=== PATIENT | male | born 1995 | race Native Hawaiian/Other Pacific Islander ===

== ENCOUNTER 2016-12-05 12:38 | Emergency (ER) | payer MEDICAID ==
[2016-12-05 13:38] LABS: Basophils % (Auto) 0.5 % (0.0-1.8); Eosinophils % (Auto) 0.3 % (0.0-4.3); Hematocrit 46.8 % (35.5-45.6); Mean Corpuscular HGB Conc 34 % (32-34); Mean Corpuscular Hemoglobin 32 pg (28-32); Mean Corpuscular Volume 93 fl (84-94); Platelet Count 196 K/mm3 (140-440); Red Blood Count 5.05 M/mm3 (3.65-5.03); Red Cell Distribution Width 12.6 % (13.2-15.2); White Blood Count 6.7 K/mm3 (4.5-11.0)
[2016-12-05 13:52] LABS: Anion Gap 19 mmol/L; BUN/Creatinine Ratio 13.33; Blood Urea Nitrogen 12 mg/dL (9-20); Calcium 9.9 mg/dL (8.4-10.2); Carbon Dioxide 25 mmol/L (22-30); Chloride 97.9 mmol/L (98-107); Glucose 79 mg/dL (75-100); Potassium 4.3 mmol/L (3.6-5.0); Sodium 138 mmol/L (137-145)
[2016-12-05 14:29] LABS: Urine Drugs of Abuse Note Disclamer
[2016-12-05 14:42] LABS: Bilirubin,Urine NEG (Negative); Blood,Urine NEG (Negative); Ketones,Urine NEG (Negative); Leukocyte Esterase,Urine NEG (Negative); Mucus,Urine 1+ /HPF; Nitrite,Urine NEG (Negative); Protein,Urine <15 mg/dL mg/dL (Negative); Urobilinogen,Urine < 2.0 mg/dL (<2.0)
--- NOTE | 2016-12-05 18:23 | Emergency Department Report ---
ED Psych HPI - General Chief Complaint: Psych Stated Complaint: [facility] Time Seen by Provider: 12/05/16 18:04 Source: patient Mode of arrival: Ambulatory Limitations: No Limitations - History of Present Illness -: Gradual Associated Psychiatric Symptoms: homicidal ideation, auditory hallucinations Quality: constant Improves With: none Worsens With: none Context: other (hx schizo) Associated Symptoms: denies: confusion, headache, shortness of breath, nausea, vomiting, syncope, insomnia Treatments Prior to Arrival: other (called crisis line and they sent pt here) - Related Data Allergies Allergy/AdvReac Type Severity Reaction Status Date / Time Penicillins Allergy Unknown Verified 12/05/16 12:53 ED Review of Systems ROS: Stated complaint: [facility] Other details as noted in HPI Comment: All other systems reviewed and negative Constitutional: no symptoms reported Eyes: as per HPI ENT: as per HPI Respiratory: no symptoms reported Cardiovascular: as per HPI Endocrine: no symptoms reported Gastrointestinal: as per HPI Genitourinary: as per HPI Musculoskeletal: as per HPI Skin: as per HPI Neurological: as per HPI Psychiatric: as per HPI, auditory hallucinations, homicidal thoughts Hematological/Lymphatic: as per HPI ED Past Medical Hx - Past Medical History Previous Medical History?: Yes Hx Psychiatric Treatment: Yes (schizophrenia) - Surgical History Past Surgical History?: Yes Additional Surgical History: eye surgery - Family History Family history: no significant - Social History Smoking Status: Never Smoker Substance Use Type: Non Opiate Pain ED Physical Exam - General Limitations: No Limitations General appearance: alert, anxious, other (constricted) - Head Head exam: Present: atraumatic - Eye Eye exam: Present: normal appearance, PERRL - ENT ENT exam: Present: normal exam, mucous membranes moist - Neck Neck exam: Present: normal inspection. Absent: tenderness, meningismus - Respiratory Respiratory exam: Present: normal lung sounds bilaterally - Cardiovascular Cardiovascular Exam: Present: regular rate, bradycardia - GI/Abdominal GI/Abdominal exam: Present: soft - Rectal Rectal exam: Present: deferred - Neurological Exam Neurological exam: Present: alert, altered, oriented X3, CN II-XII intact, normal gait, reflexes normal. Absent: abnormal gait, motor sensory deficit - Psychiatric Psychiatric exam: Present: anxious, flat affect, homicidal ideation, other ( constricted. responding to internal commands) - Skin Skin exam: Present: warm, dry, normal color ED Course Vital Signs 12/05/16 12/05/16 12/05/16 12:53 16:53 18:03 Temperature 98 F 97.8 F Pulse Rate 50 L 54 L Respiratory 16 20 18 Rate Blood Pressure 118/74 117/80 Blood Pressure [Left] O2 Sat by Pulse 99 10 L 100 Oximetry 12/05/16 18:09 Temperature 59 F L Pulse Rate 59 L Respiratory 18 Rate Blood Pressure Blood Pressure 119/78 [Left] O2 Sat by Pulse 100 Oximetry - Reevaluation(s) Reevaluation #1: 12/05/16 18:32 here w mom and bro for psych eval schizo invega im trazadone and ambien taking meds per mom denies drugs denies si pt constricted av to hurt mom or bro. sponge melissa is telling him to do so pt cooperative. labs noted [facility] [id number] Reevaluation #2: 12/05/16 20:20 vss nad awaiting [facility] ED Medical Decision Making - Lab Data Result diagrams: 12/05/16 13:09 12/05/16 13:09 - Medical Decision Making here for [facility] Critical care attestation.: If time is entered above; I have spent that time in minutes in the direct care of this critically ill patient, excluding procedure time. ED Disposition Clinical Impression: Schizo affective schizophrenia, Auditory hallucination, Homicidal ideations Disposition: [id number] PSY HOSP/PSY UNIT Is pt being admited?: No Does the pt Need Aspirin: No Condition: Stable Referrals: PRIMARY CARE, [Primary Care Provider] - 3-5 Days
[2016-12-05] MEDS ORDERED: DESYREL PO ONE (20:58)
[2016-12-06 03:45] VITALS: BP 112/59
== END 2016-12-06 01:15 ==
LOC: ED 12:38 → EEVIPCON 12:38 → ED 12-06 01:15
DX: F25.9 Schizoaffective disorder, unspecified (principal); Z88.0 Allergy status to penicillin
CPT/HCPCS: 36415; 80048; 80307; 81001; 85025; 99285; G0480; 80320